=== PATIENT | female | born 1950 | race Caucasian/White ===

== ENCOUNTER → 2016-10-26 | Outpatient (CLI) | payer OTHER, MEDICARE | LOC: CIMAGING 08:13 | PROVIDERS: ATTEND Internal Medicine | DX: Z12.31 Encounter for screening mammogram for malignant neoplasm of breast (principal); Z80.3 Family history of malignant neoplasm of breast | CPT/HCPCS: G0202 ==

== ENCOUNTER 2017-02-16 09:40 | Emergency (ER) | payer OTHER, MEDICARE ==
[2017-02-16] MEDS ORDERED: OSELTAMIVIR PHOSPHATE 75 MG CAP PO ONE (09:54)
[2017-02-16] MEDS ORDERED: IPRATROPIUM/ALBUTEROL 3 ML DEYVIAL IH ONE (09:54)
[2017-02-16 09:57] VITALS: TEMP 100.2
--- NOTE | 2017-02-16 09:58 | EDPHY ---
H & P Time Seen by Provider: 02/16/17 09:41 HPI/ROS: HPI Influenza, hypoxia. 67-year-old female from her primary care physician's office. This is Dr. Apple. She reports that she developed fever Wednesday afternoon. She reports that Wednesday she developed a dry nonproductive cough with nasal congestion and clear rhinorrhea, muscle aches and joint aches and fatigue. She saw her primary care physician, Dr. Apple just prior to arrival. She was diagnosed with influenza by rapid influenza assay. Her room air pulse oximetry in Dr. Apple office was apparently in the low 80s. She was sent down to the emergency department for evaluation because of this. ROS: Constitutional: As above. Eyes: No discharge. No changes in vision. ENT: No sore throat. As above. Respiratory: As above. Cardiac: No chest pain, no palpitations. Gastrointestinal: No abdominal pain, no vomiting, no diarrhea. Genitourinary: No hematuria. No dysuria or increased frequency with urination. Musculoskeletal: As above. Skin: No rashes. Neurological: No headache. No focal weakness or altered sensation. Past medical history: No history of reactive airway disease, asthma, COPD. No other significant past medical history. Social history: She is a smoker. Here by herself. No alcohol. Physical Exam: General Appearance: Alert, no distress. This patient is responding to questions appropriately and in full sentences. This patient appears well- hydrated and well-nourished. Eyes: Pupils equal and round no pallor or injection. No lid edema, erythema or injection. ENT, Mouth: Mucous membranes are moist. The pharyngeal tissues are unremarkable. No edema or swelling. No asymmetry suggestive of abscess. No erythema or exudates. No cervical, submandibular, submental lymphadenopathy. No voice changes. No stridor on auscultation of her neck. Respiratory: There are no retractions, scant rhonchi and some wheezing upper alvarez. Good air movement. No tachypnea. Cardiovascular: Regular rate and rhythm. No murmur appreciated. Neurological: Motor sensory function is grossly intact. Cranial nerves are normal. Gait is normal. Skin: Warm and dry, no rashes. Musculoskeletal: Neck is supple and nontender. Extremities are symmetrical. All joints range without pain or impingement. Psychiatric: No agitation. No depression. Database: EKG: Imaging: Chest x-ray PA and lateral; the cardiac mediastinal silhouette is unremarkable. No evidence of infiltrate or pneumothorax. Mild bronchitis. No other acute cardiopulmonary disease process noted. Interpreted by me. Procedures: Emergency department course: Vital signs reviewed. Temperature is 37.9degrees. Pulse oximetry from triage was 79%. However, this was thought to be a runny is by the nursing staff secondary to cold fingers. Pulse oximetry on 1 L by nasal cannula was rechecked and is 95%. She will be given 75 mg of oral Tamiflu. She was started on albuterol/Atrovent nebulizers and given 60 mg of prednisone orally. 10:30 a.m., patient re-evaluated. Feeling better. Repeat lung exam better air movement. Still some scant wheezing. No rhonchi. She will be given 2 albuterol nebulizer treatments. She is currently on 1 L of nasal cannula oxygen with pulse oximetry is 92-93%. 11:30 a.m., patient's room air pulse oximetry while walking around is in the mid to upper 80s. I strongly advised admission for observation in the hospital. She does not want to do this. I thoroughly explained the risks of declining admission. In my professional opinion she understands these risks. The patient competently engages in shared decision making. They demonstrate capacitance to make decisions. She is requesting discharge. Plan will be to discharge her against medical advice. I will prescribe her prednisone, albuterol inhaler, Tamiflu. She is to follow up with her primary care physician Dr. Apple tomorrow for re-evaluation. Return to emergency department precautions were thoroughly reviewed with her. All of her questions were answered. She was discharged in good condition. Differential Diagnosis: The differential diagnosis on this patient includes but is not limited to influenza, bronchitis, reactive airway disease. This represents a partial list of diagnoses considered. These considerations are based on history, physical exam, past history, reassessment and diagnostic testing. Constitutional: Initial Vital Signs Temperature (C) 37.9 C 02/16/17 09:50 Heart Rate 78 02/16/17 09:50 Respiratory Rate 20 02/16/17 09:50 Blood Pressure 142/91 H 02/16/17 09:50 O2 Sat (%) 79 L 02/16/17 09:50 O2 Delivery Mode Room Air O2 (L/minute) 1 Allergies/Adverse Reactions: No Known Allergies Allergy (Verified 02/16/17 09:55) Home Medications: Medication Instructions Recorded Atenolol [Tenormin] 75 mg PO DAILY 03/30/11 Lisinopril [Zestril] 40 mg PO 03/30/11 Albuterol [Proventil Inhaler HFA 2 puffs IH Q2-4PRN PRN #1 mdi 02/16/17 (*)] Oseltamivir Phosphate [Tamiflu 75 75 mg PO BID #10 cap 02/16/17 mg (RX)] predniSONE [prednisone 20mg (RX)] 60 mg PO DAILY #9 tab 02/16/17 Medical Decision Making - Diagnostics Imaging Results: Imaging Impressions Chest X-Ray 02/16/17 09:54 Impression: Features consistent with reactive airways' disease and/or a virally- mediated bronchitis. There is no focal infiltrate identified. - Data Points Medications Given: Discontinued Medications Albuterol (Proventil Neb) 6 ml IH EDNOW ONE Stop: 02/16/17 10:26 Last Admin: 02/16/17 10:29 Dose: 6 ml Albuterol/Ipratropium (Duoneb) 6 ml IH EDNOW ONE Stop: 02/16/17 09:55 Last Admin: 02/16/17 10:01 Dose: 6 ml Oseltamivir Phosphate (Tamiflu) 75 mg PO EDNOW ONE Stop: 02/16/17 09:55 Last Admin: 02/16/17 10:03 Dose: 75 mg Prednisone (Prednisone) 60 mg PO EDNOW ONE Stop: 02/16/17 10:26 Last Admin: 02/16/17 10:29 Dose: 60 mg Departure - Departure Disposition: Against Medical Advice Clinical Impression: Influenza, Hypoxia Condition: Good Instructions: Influenza (ED) Additional Instructions: Read and follow provided instructions. Follow-up with your primary care physician, Dr. Apple, tomorrow as discussed for re-evaluation. Take medication as prescribed. Return to the emergency department for worsening symptoms, worsening cough, difficulty breathing, high fever or other serious concerns. Do not smoke cigarettes. No strenuous activity until symptoms resolve. Keep well hydrated. Drink lots of fluids. Referrals: Manjit Apple MD [Primary Care Provider] - As per Instructions Prescriptions: Albuterol [Proventil Inhaler HFA (*)] 2 puffs IH Q2-4PRN PRN #1 mdi PRN Reason: Sob/Dyspnea Oseltamivir Phosphate [Tamiflu 75 mg (RX)] 75 mg PO BID #10 cap predniSONE [prednisone 20mg (RX)] 60 mg PO DAILY #9 tab
[2017-02-16] MEDS ORDERED: ALBUTEROL 3 ML DEYVIAL IH ONE (10:25)
[2017-02-16] MEDS ORDERED: predniSONE 20 MG TAB PO ONE (10:25)
[2017-02-16 10:51] VITALS: RESP 18
[2017-02-16 11:53] VITALS: BP 109/65; PULSE 98; O2SAT 88
== END 2017-02-16 11:54 | disposition left against medical advice (07) ==
LOC: CED 09:40
DX: J11.1 Influenza due to unidentified influenza virus with other respiratory manifestations (principal); R09.02 Hypoxemia; F17.200 Nicotine dependence, unspecified, uncomplicated
CPT/HCPCS: 71046; 99284; J7512; J7613

== ENCOUNTER → 2017-10-27 | Outpatient (CLI) | payer OTHER, MEDICARE | LOC: CIMAGING 09:59 | PROVIDERS: ATTEND Internal Medicine | DX: Z12.31 Encounter for screening mammogram for malignant neoplasm of breast (principal); Z80.3 Family history of malignant neoplasm of breast ==